=== PATIENT | female | born 1990 | race Two or more races ===

== ENCOUNTER 2017-11-24 17:42 | Emergency (ER) | payer BC, MEDICAID ==
[~2017-11-24] VITALS: Ht 162.6 cm; Wt 73.5 kg
[~2017-11-24 17:42] MED LIST: PREN-96 PO
[2017-11-24 17:59] VITALS: BP 122/78
[2017-11-24 18:27] LABS: Basophils # (auto) 0.1 uL; Basophils % (auto) 0.7 % (0.0-2.0); Eosinophils # (auto) 0.1 uL; Eosinophils % (auto) 1.1 % (0.0-7.0); Hematocrit 35.7 % (36.0-46.0); Hemoglobin 11.9 g/dL (12.2-16.2); Lymphocytes # (auto) 1.6 uL; Lymphocytes % (auto) 20.4 % (10.0-50.0); Mean Corpuscular Hemoglobin 30.4 pg (28.0-32.0); Mean Corpuscular Hgb Conc. 33.2 g/dL (32.0-36.0); Mean Corpuscular Volume 91.4 fL (80.0-100.0); Monocytes # (auto) 0.4 uL; Monocytes % (auto) 5.4 % (0.0-12.0); Neutrophils # (auto) 5.8 uL; Neutrophils % (auto) 72.4 % (37.0-80.0); Platelet Count (auto) 186 10^3/uL (140-450); White Blood Cell 8.1 10^3/uL (4.4-10.8)
[2017-11-24 18:45] LABS: Albumin 3.2 g/dL (3.4-5.0); BUN/Creatinine Ratio 11.3; Calcium 8.5 mg/dL (8.5-10.1); Potassium 3.7 mmol/L (3.5-5.1)
[2017-11-24 18:47] LABS: Bilirubin, Total 0.2 mg/dL (0.2-1.0); Total Protein 7.2 g/dL (6.4-8.2)
[2017-11-24 19:34] LABS: Urine Bacteria NONE SEEN /hpf (None Seen); Urine Blood 2+ /uL (Negative); Urine Specific Gravity 1.006 (1.001-1.035); Urine WBC 2 /hpf (0 - 5)
[2017-11-24 21:01] LABS: INR 0.9 (0.9-1.15); Partial Thromboplastin Time 29.5 sec (23.78-33.04); Prothrombin Time 9.7 sec (9.27-12.13)
== END 2017-11-24 21:53 | disposition home or self-care (01) ==
LOC: ER 17:42
DX: O20.0 Threatened abortion (principal); Z3A.17 17 weeks gestation of pregnancy
CPT/HCPCS: 36415; 76805; 80053; 81001; 84702; 85025; 85610; 85730; 86900; 86901

== ENCOUNTER 2018-12-28 11:58 | Emergency (ER) | payer BC, OTHER ==
[~2018-12-28] VITALS: Ht 162.6 cm; Wt 74.4 kg
[2018-12-28 12:10] VITALS: BP 116/65
[2018-12-28] MEDS ORDERED: KETOROLAC TROMETH 60MG/2ML VIAL IM ONE (13:45)
== END 2018-12-28 15:10 | disposition home or self-care (01) ==
LOC: ER 11:58
DX: S39.012A Strain of muscle, fascia and tendon of lower back, initial encounter (principal); M54.16 Radiculopathy, lumbar region; Z79.899 Other long term (current) drug therapy; X50.0XXA Overexertion from strenuous movement or load, initial encounter; Y99.8 Other external cause status; Y93.89 Activity, other specified; Y92.89 Other specified places as the place of occurrence of the external cause
CPT/HCPCS: 72100; 96372; 99283; J1885

== ENCOUNTER 2022-06-26 10:10 | Emergency (ER) | payer MEDICAID, OTHER ==
[~2022-06-26] VITALS: Ht 157.5 cm; Wt 65.4 kg
[2022-06-26 11:00] LABS: Basophils # (auto) 0.1 10 ^3/uL (0-0.2); Basophils % (auto) 1.2 % (0.0-2.0); Eosinophils # (auto) 0.4 10 ^3/uL (0-0.8); Eosinophils % (auto) 5.9 % (0.0-7.0); Hematocrit 36.1 % (36.0-46.0); Hemoglobin 11.9 g/dL (12.2-16.2); Lymphocytes # (auto) 0.8 10 ^3/uL (0.4-5.4); Lymphocytes % (auto) 11.7 % (10.0-50.0); Mean Corpuscular Hemoglobin 27.3 pg (28.0-32.0); Mean Corpuscular Volume 82.6 fL (80.0-100.0); Monocytes # (auto) 0.6 10 ^3/uL (0-1.3); Monocytes % (auto) 8.1 % (0.0-12.0); Neutrophils % (auto) 73.1 % (37.0-80.0); Nucleated Red Blood Cells % 0.1 %; Red Blood Cells 4.37 10^6/uL (4.0-5.20); Red Cell Distribution Width 17.3 % (11.8-14.3); White Blood Cell 6.9 10^3/uL (4.4-10.8)
[2022-06-26 12:30] LABS: Albumin 4.3 g/dL (3.4-5.0); Calcium 9.4 mg/dL (8.5-10.1); Potassium 3.8 mmol/L (3.5-5.1)
[2022-06-26 12:32] LABS: BUN/Creatinine Ratio 12.2
[2022-06-26 12:39] LABS: Bilirubin, Total 0.4 mg/dL (0.2-1.0); Total Protein 8.2 g/dL (6.4-8.2)
[2022-06-26 15:20] LABS: Urine Bacteria FEW /hpf (None Seen); Urine Blood 3+ /uL (Negative); Urine Mucus FEW (None Seen); Urine Specific Gravity 1.027 (1.001-1.035); Urine WBC 4 /hpf (0 - 5)
[2022-06-26 17:50] VITALS: BP 100/55
== END 2022-06-26 17:57 | disposition home or self-care (01) ==
LOC: ER 10:10
DX: K52.9 Noninfective gastroenteritis and colitis, unspecified (principal); R10.2 Pelvic and perineal pain; Z79.899 Other long term (current) drug therapy
CPT/HCPCS: 36415; 74176; 80053; 81001; 84702; 85025

== ENCOUNTER 2022-12-21 13:13 | Emergency (ER) | payer MEDICAID, OTHER ==
[~2022-12-21] VITALS: Ht 157.5 cm; Wt 67.7 kg
[2022-12-21 14:33] VITALS: BP 132/80; PULSE 78; RESP 18; TEMP 97.9; O2SAT 98
[2022-12-21] MEDS ORDERED: IBUPROFEN 600 MG TAB PO ONE (15:00)
[2022-12-21] MEDS ORDERED: IBUP1TAB5 PO (15:03)
== END 2022-12-21 14:58 | disposition home or self-care (01) ==
LOC: ER 13:13
DX: S00.03XA Contusion of scalp, initial encounter (principal); W22.8XXA Striking against or struck by other objects, initial encounter; Y93.89 Activity, other specified; Y92.89 Other specified places as the place of occurrence of the external cause; Y99.8 Other external cause status
CPT/HCPCS: 70450

== ENCOUNTER 2023-06-18 20:11 | Emergency (ER) | payer OTHER ==
[~2023-06-18] VITALS: Ht 157.5 cm; Wt 68.0 kg
[~2023-06-18 20:11] MED LIST changes: +IBUP1TAB5 PO
[2023-06-18] MEDS: HYDROcodone-ACET 5/325MG TAB PO ONE (21:31)
[2023-06-18 21:45] VITALS: BP 108/68; PULSE 83; RESP 18; TEMP 98.2; O2SAT 100
[2023-06-18] MEDS ORDERED: HYDR-4902 PO (21:49)
[2023-06-18] MEDS ORDERED: IBUP-1456 PO (21:49)
== END 2023-06-18 22:01 | disposition home or self-care (01) ==
LOC: ER 20:11
DX: S82.61XA Displaced fracture of lateral malleolus of right fibula, initial encounter for closed fracture (principal); Z79.899 Other long term (current) drug therapy; X58.XXXA Exposure to other specified factors, initial encounter; Y93.89 Activity, other specified; Y92.89 Other specified places as the place of occurrence of the external cause; Y99.8 Other external cause status
CPT/HCPCS: 29515; 73610

== ENCOUNTER 2024-08-30 06:06 | Observation (INO) | payer OTHER ==
[~2024-08-30 06:06] MED LIST changes: +HYDR-4902 PO; +IBUP-1456 PO
--- NOTE | 2024-08-30 07:36 | DVH ---
LIMITED OB ULTRASOUND > 14 WKS: HISTORY: VAGINAL BLEEDING TECHNIQUE: Multiple real-time grayscale images of the gravid uterus with duplex Doppler color flow an d M-mode spectral analysis. FINDINGS: IUP single live fetus at 26 weeks 0 days based on composite averages of the BPD, head circumference, abdominal circumference and femur length Estimated weight 846 grams heart rate 138 beats per minute THEA not measured. MVP measures 6.3 cm. Cervix measures 3.9 cm in length and is closed. Transverse Presentation Grade 1 anterior Placenta without previa or abruption. IMPRESSION: 1. IUP single live fetus at 26 weeks 0 days AUA without acute abnormality.
--- NOTE | 2024-08-30 07:42 | DVHDS2 ---
Physician Discharge Progress N Final Diagnosis: vag bleeding s/p fall 25wks Operations or Procedures: Operations or Procedures nst reactive reviewed,sono abruption ruled out Consultations: Consultations after dc here report to [facility] to have consult in house today Condition on Discharge: Good Disposition: Home Discharge Instructions: Diet: Regular Activity: Light activity Medications: na Follow Up Care: Specialist: to [place] after dc immediately Discharge Statement: "Patient was advised to return to the ER or call 911 if any headaches, dizziness, shortness of breath, chest pain, abdominal pain, bleeding, fevers, or worsening of medical condition. Patient was counseled about treatment plan, medications, possible side effects, patientverbalized understanding. All questions were answered to the best of my ability. This discharge took greater then 30 minutes in planning, reviewing documentation, counseling the patient, and discussing with other team members." Visit Coding OBGYN Date of Service: August 30, 2024 Billing Provider: DERIAN WILLAMS DO [facility] Common Visit Codes: [id number] INP/OBS CARE (HIGH) [facility] Procedure Codes: 42773-55- NON-STRESS TEST DERIAN WILLAMS DO August 30, 2024 07:42
== END 2024-08-30 07:51 | disposition home or self-care (01) ==
LOC: LDRP 06:06
PROVIDERS: ADMIT Obstetrics & Gynecology; ATTEND Obstetrics & Gynecology
DX: O46.93 Antepartum hemorrhage, unspecified, third trimester (principal); Z3A.25 25 weeks gestation of pregnancy; Z79.899 Other long term (current) drug therapy; W19.XXXA Unspecified fall, initial encounter; Y93.89 Activity, other specified; Y92.89 Other specified places as the place of occurrence of the external cause; Y99.8 Other external cause status
CPT/HCPCS: 59025; 76805; 76817; 81002; 94760; G0378